=== PATIENT | female | born 1995 | race Caucasian/White ===

== ENCOUNTER 2020-10-18 13:14 | Emergency (ER) | payer OTHER ==
[~2020-10-18] VITALS: Ht 157.5 cm; Wt 59.0 kg
[2020-10-18 14:12] VITALS: BP 142/84
== END 2020-10-18 16:14 | disposition home or self-care (01) ==
LOC: ER 13:14
DX: U07.1 COVID-19 (principal); J06.9 Acute upper respiratory infection, unspecified
CPT/HCPCS: 36415; 71045; 87426; 99284; C9803; U0003